=== PATIENT | female | born 1970 | race Two or more races ===

== ENCOUNTER 2020-02-07 20:41 | Emergency (ER) | payer SELFPAY ==
[2020-02-07] MEDS ORDERED: hydrOXYzine HCl 25 MG Tab PO ONE (21:58)
--- NOTE | 2020-02-07 22:21 | EDM.PDOC ---
ED HPI GENERAL MEDICAL PROBLEM - General Chief Complaint: Skin Complaint Stated Complaint: RASH Time Seen by Provider: 02/07/20 20:47 - History of Present Illness INITIAL COMMENTS - FREE TEXT/NARRATIVE: Patient is a 49-year-old female with a history of hypertension and diabetes who presents with diffuse highly pruritic papular rash that is developed over the last several days. Symptoms started with her youngest daughter her older daughter who share a bedroom and then she developed the symptoms. and another child do not have symptoms. She reports that she has been seen in multiple clinics they have been given topical steroids permethrin as well as Keflex she reports that she has tried to fumigate the home herself she is washed sheets and clothes repeatedly and the problem persists. She is very concerned that there may be an underlying acute infection going on. - Related Data Allergies Allergy/AdvReac Type Severity Reaction Status Date / Time No Known Allergies Allergy Verified 02/07/20 21:06 Home Meds: Home Meds Lovastatin 20 mg PO DAILY 02/07/20 [History] Meloxicam 15 mg PO DAILY 02/07/20 [History] Pioglitazone [Actos] 15 mg PO DAILY 02/07/20 [History] hydrOXYzine HCL [Atarax] 25 mg PO Q8H PRN 7 Days #21 tab 02/07/20 [Rx] hydroCHLOROthiazide [Hydrochlorothiazide] 25 mg PO DAILY 02/07/20 [History] lisinopriL [Lisinopril] 10 mg PO DAILY 02/07/20 [History] metFORMIN [Glucophage] 850 mg PO BIDMEALS 02/07/20 [History] Past Medical History HEENT History: Reports: None Cardiovascular History: Reports: Hypertension Respiratory History: Reports: None Gastrointestinal History: Reports: None Genitourinary History: Reports: None CORN DETASSELER History: Reports: None Musculoskeletal History: Reports: None Neurological History: Reports: None Psychiatric History: Reports: None Endocrine/Metabolic History: Reports: Diabetes, Type II Hematologic History: Reports: None Immunologic History: Reports: None Oncologic (Cancer) History: Reports: None Dermatologic History: Reports: None - Infectious Disease History Infectious Disease History: Reports: None - Past Surgical History Head Surgeries/Procedures: Reports: None Social & Family History - Tobacco Use Smoking Status *Q: Never Smoker Second Hand Smoke Exposure: No - Caffeine Use Caffeine Use: Reports: None - Recreational Drug Use Recreational Drug Use: No ED ROS GENERAL - Review of Systems Review Of Systems: See Below Free Text/Narrative/Comment: General: No fever. Skin: Per HPI Eyes: No vision problems. ENT: No sore throat. Neck: No neck stiffness. Respiratory: No shortness of breath. Cardiac: No chest pain. Gastrointestinal: No nausea, vomiting or abdominal pain. Musculoskeletal: No myalgias/arthralgias. ED EXAM, SKIN/RASH Exam: See Below Text/Narrative:: General Appearance: No acute distress, appears comfortable Skin: Diffuse small erythematous papules in the axilla and the elbows but also over the back and the legs no linear tracts or signs of scabies no bugs seen no signs of secondary infection no signs of cellulitis HEENT: Normocephalic/atraumatic, sclera anicteric, mucous membranes moist Neck: Normal range of motion Chest and Lungs: Bilateral breath sounds, clear to auscultation Cardiovascular: Regular rate and rhythm, no murmur Back: Normal Musculoskeletal: No edema or tenderness Neurologic: Awake, alert, no obvious deficits, moving all extremities Psychiatric: Appropriate, cooperative Course - Vital Signs Last Recorded V/S: Last Vital Signs Temp 97.0 F 02/07/20 21:04 Pulse 82 02/07/20 21:04 Resp 18 02/07/20 21:04 BP 134/95 H 02/07/20 21:04 Pulse Ox 92 L 02/07/20 21:04 - Orders/Labs/Meds Labs: Laboratory Tests 02/07/20 02/07/20 Range/Units 22:07 22:07 WBC 8.37 (4.0-11.0) K/uL RBC 4.51 (4.30-5.90) M/uL Hgb 13.0 (12.0-16.0) g/dL Hct 40.0 (36.0-46.0) % MCV 88.7 (80.0-98.0) fL MCH 28.8 (27.0-32.0) pg MCHC 32.5 (31.0-37.0) g/dL RDW Std Deviation 39.1 (28.0-62.0) fl RDW Coeff of Mary 12 (11.0-15.0) % Plt Count 250 (150-400) K/uL MPV 11.20 (7.40-12.00) fL Neut % (Auto) 48.7 (48.0-80.0) % Lymph % (Auto) 41.1 H (16.0-40.0) % [place] % (Auto) 7.8 (0.0-15.0) % Eos % (Auto) 2.0 (0.0-7.0) % Baso % (Auto) 0.4 (0.0-1.5) % Neut # (Auto) 4.1 (1.4-5.7) K/uL Lymph # (Auto) 3.4 H (0.6-2.4) K/uL [place] # (Auto) 0.7 (0.0-0.8) K/uL Eos # (Auto) 0.2 (0.0-0.7) K/uL Baso # (Auto) 0.0 (0.0-0.1) K/uL Nucleated RBC % 0.0 /100WBC Nucleated RBCs # 0 K/uL Sodium 135 L (136-145) mmol/L Potassium 3.9 (3.5-5.1) mmol/L Chloride 98 (98-107) mmol/L Carbon Dioxide 28.0 (21.0-32.0) mmol/L BUN 16 (7.0-18.0) mg/dL Creatinine 1.2 H (0.6-1.0) mg/dL Est Cr Clr Drug Dosing 45.84 mL/min Estimated GFR (MDRD) 48.2 ml/min Glucose 256 H (74-106) mg/dL Calcium 8.7 (8.5-10.1) mg/dL Meds: Medications Discontinued Medications Generic Name Dose Route Start Last Admin Trade Name Freq PRN Reason Stop Dose Admin Hydroxyzine HCl 25 mg 02/07/20 21:58 02/07/20 22:14 Atarax PO 02/07/20 21:59 25 mg ONETIME ONE Administration Departure - Departure Time of Disposition: 22:51 Disposition: Home, Self-Care 01 Condition: Good Clinical Impression: Infestation by bed bug - Discharge Information *PRESCRIPTION DRUG MONITORING PROGRAM REVIEWED*: Not Applicable *COPY OF PRESCRIPTION DRUG MONITORING REPORT IN PATIENT EDUARD: Not Applicable Prescriptions: hydrOXYzine HCL [Atarax] 25 mg PO Q8H PRN 7 Days #21 tab PRN Reason: Itching Instructions: Bedbugs, [id number] Referrals: Dane Cagle,Estrella [Ordering Only Provider] - 1 Week Forms: ED Department Discharge Additional Instructions: You can use the Atarax to help with the itching. However it will not remove the problem infestation likely is to the point that you cannot control it yourself. Please employ the services of a professional bedbug eradication service to do a formal inspection and eradication if needed. Please follow-up with a primary care provider in a week for another assessment. The following information is given to patients seen in the emergency department who are being discharged to home. This information is to outline your options for follow-up care. We provide all patients seen in our emergency department with a follow-up referral. The need for follow-up, as well as the timing and circumstances, are variable depending upon the specifics of your emergency department visit. If you don't have a primary care physician on staff, we will provide you with a referral. We always advise you to contact your personal physician following an emergency department visit to inform them of the circumstance of the visit and for follow-up with them and/or the need for any referrals to a consulting specialist. The emergency department will also refer you to a specialist when appropriate. This referral assures that you have the opportunity for follow-up care with a specialist. All of these measure are taken in an effort to provide you with optimal care, which includes your follow-up. Under all circumstances we always encourage you to contact your private physician who remains a resource for coordinating your care. When calling for follow-up care, please make the office aware that this follow-up is from your recent emergency room visit. If for any reason you are refused follow-up, please contact the [facility] Emergency Department at and asked to speak to the emergency department charge nurse. Sepsis Event Note (ED) - Evaluation Sepsis Screening Result: No Definite Risk - Focused Exam Vital Signs: Vital Signs Temp Pulse Resp BP Pulse Ox 02/07/20 21:04 97.0 F 82 18 134/95 H 92 L - Assessment/Plan Assessment:: 49-year-old female presenting with signs and symptoms that are most consistent with bedbug infestation. No signs of secondary infection no signs of scabies I do long conversation with the patient and her family through the diplomatic interpreter/translator. We discussed at length that though she has tried repeatedly to clean the home herself she needs to hire professional eradication service in order to do a formal inspection of the home. She expressed understanding of this. She is very concerned that a more serious internal process may be going on and she demands blood work to assess for this. Extensive discussion through the diplomatic interpreter/translator was unable to alleviate these concerns and so CBC and BMP ordered. Patient will be given Atarax for the itching Labs are normal discharge with prescription for Atarax and primary follow-up.
[2020-02-07 22:33] LABS: POTASSIUM,K 3.9 mmol/L (3.5-5.1)
== END 2020-02-07 23:01 | disposition home or self-care (01) ==
LOC: MW.ED 20:41
DX: S40.869A Insect bite (nonvenomous) of unspecified upper arm, initial encounter (principal); S50.369A Insect bite (nonvenomous) of unspecified elbow, initial encounter; S30.860A Insect bite (nonvenomous) of lower back and pelvis, initial encounter; S80.861A Insect bite (nonvenomous), right lower leg, initial encounter; S80.862A Insect bite (nonvenomous), left lower leg, initial encounter; I10 Essential (primary) hypertension; E11.9 Type 2 diabetes mellitus without complications; Z79.899 Other long term (current) drug therapy; W57.XXXA Bitten or stung by nonvenomous insect and other nonvenomous arthropods, initial encounter
CPT/HCPCS: 36415; 80048; 85025; 99283; A9270